=== PATIENT | female | born 1990 | race Two or more races ===

== ENCOUNTER 2020-07-07 16:06 | Emergency (ER) | payer MEDICAID, OTHER ==
[~2020-07-07] VITALS: Ht 154.9 cm; Wt 81.6 kg
[~2020-07-07 16:06] MED LIST: TRAM50TA2 PO
[2020-07-07] MEDS ORDERED: methylPREDNISolone SOD SUCC 125 MG/2 ML VL IM ONE (19:15)
[2020-07-07 19:25] VITALS: BP 135/82
== END 2020-07-07 21:12 | disposition home or self-care (01) ==
LOC: ER 16:06
DX: L03.213 Periorbital cellulitis (principal); T78.40XA Allergy, unspecified, initial encounter; X58.XXXA Exposure to other specified factors, initial encounter
CPT/HCPCS: 96372; 99283; J2930